=== PATIENT | female | born 1950 | race African-American/Black ===

== ENCOUNTER 2018-01-07 10:35 | Outpatient (CLI) | payer OTHER ==
[~2018-01-07 10:35] MED LIST: METOPROLOL SUCC50 MG; NEURONTIN300 MG; SYNTHROID100 MCG; SYNTHROID50 MCG
== END 2018-01-07 10:51 | disposition home or self-care (01) ==
LOC: RAD 10:35
DX: M79.621 Pain in right upper arm (principal); M79.622 Pain in left upper arm

== ENCOUNTER 2018-01-22 09:12 | Outpatient (CLI) | payer OTHER | END 2018-01-22 09:14 | disposition home or self-care (01) | LOC: NUCLEAR 09:12 | DX: M81.0 Age-related osteoporosis without current pathological fracture (principal) ==

== ENCOUNTER 2018-02-19 11:45 | Outpatient (CLI) | payer OTHER | END 2018-02-19 11:47 | disposition home or self-care (01) | LOC: SONOGRAMA 11:45 | DX: M79.641 Pain in right hand (principal); M79.642 Pain in left hand ==